=== PATIENT | female | born 1960 | race Caucasian/White ===

== ENCOUNTER 2018-04-06 11:48 | Day surgery (SDC) | payer BC ==
[~2018-04-06] VITALS: Ht 160 cm; Wt 91.0 kg
[2018-04-06 12:50] VITALS: Ht 160 cm; Wt 91.0 kg
[2018-04-06 12:58] VITALS: BP 131/64; PULSE 75; RESP 18
--- NOTE | 2018-04-06 13:09 | PREAC ---
Date/Time of Note Date/Time of Note DATE: 04/06/18 TIME: 13:05 Anesthesia Eval and Record Evaluation Time Pre-Procedure Interview DATE: 04/06/18 TIME: 13:05 Age 57 Sex female NPO: 8 hrs Preoperative diagnosis Barrets esophagitis Planned procedure EGD Past Medical History Past Medical History: Includes Cardio: HTN, Dyslipidemia Endo: Diabetes, Hypothyroid Pulm: Smoking Hx, COPD, Asthma GI: Obesity Surgery & Anesthesia Issues No known issue Meds Anticoagulation: Yes Beta Juan Carlos within 24 hr: Yes Meds reviewed: Yes Allergies Allergies Reviewed: Yes Labs/Studies Labs Reviewed: Reviewed by anesthesiologist test: N/A Studies: ECG Pre-procedure Exam Last vitals Vital Signs Date Temp Pulse Resp B/P (MAP) Pulse Ox O2 O2 Flow FiO2 Time Delivery Rate 04/06/18 97.5 75 18 131/64 96 Room Air 12:58 (86) Airway: Adequate mouth opening, Adequate thyromental dist Mallampati: Mallampati II Teeth: Normal Lung: Normal Heart: Normal ASA Physical Status ASA physical status: 3 Emergency: None Planned Anesthetic General/MAC: MAC Planned Pain Management Parenteral pain med Pre-operative Attestations Prior to commencing anesthesia and surgery, the patient was re-evaluated, there was verification of: *The patient's identity *The results of appropriate recent lab work and preoperative vital signs *The above evaluation not changing prior to induction *Anesthetic plan, risk benefits, alternative and complications discussed with patient/family; questions answered; patient/family understands, accepts and wishes to proceed. CHRISTIANE WESTON MD Apr 06, 2018 13:09
[2018-04-06] MEDS ORDERED: LORA10TA3 PO (13:10)
[2018-04-06] MEDS ORDERED: LEVO88TA3 PO (13:10)
[2018-04-06] MEDS ORDERED: SPIR100T4 PO (13:10)
[2018-04-06] MEDS ORDERED: ATOR40TA68 PO (13:10)
[2018-04-06] MEDS ORDERED: METO-319 PO (13:10)
[2018-04-06] MEDS ORDERED: FURO40TA4 PO (13:10)
[2018-04-06] MEDS ORDERED: BUSP10TA2 PO (13:10)
[2018-04-06] MEDS ORDERED: CYAN1TAB55 PO (13:10)
[2018-04-06] MEDS ORDERED: LIDOCAINE 2% (SDV) 5 ML INJ ONE (13:10)
[2018-04-06] MEDS ORDERED: AMLO-147 PO (13:10)
[2018-04-06] MEDS ORDERED: PROPOFOL 40 ML ONE (13:10)
[2018-04-06] MEDS ORDERED: GABA-526 PO (13:10)
[2018-04-06] MEDS ORDERED: HYDR-3029 PO (13:10)
[2018-04-06] MEDS ORDERED: BENA10TA4 PO (13:10)
[2018-04-06] MEDS ORDERED: CITA40TA6 PO (13:10)
[2018-04-06] MEDS ORDERED: ESOM40CA PO (13:10)
[2018-04-06] MEDS ORDERED: MTF1000T PO (13:10)
--- NOTE | 2018-04-06 13:38 | PAC ---
Date/Time of Note Date/Time of Note DATE: 04/06/18 TIME: 13:37 Post-Anesthesia Notes Post-Anesthesia Note Last documented vital signs Vital Signs Date Temp Pulse Resp B/P (MAP) Pulse Ox O2 O2 Flow FiO2 Time Delivery Rate 04/06/18 97.5 75 18 131/64 96 Room Air 12:58 (86) Activity: WNL Respiratory function: WNL Cardiovascular function: WNL Mental status: Baseline Pain reasonably controlled: Yes Hydration appropriate: Yes Nausea/Vomiting absent: Yes Comments BP:128/56, P:88, spo2:100%, T:98,4 CHRISTIANE WESTON MD Apr 06, 2018 13:38
[2018-04-06 13:59] VITALS: BP 108/64; PULSE 84; RESP 23
[2018-04-06] MEDS ORDERED: ONDANSETRON 4 MG INJ IV PRN (14:00)
[2018-04-06] MEDS ORDERED: DIPHENHYDRAMINE 50 MG INJ IV PRN (14:00)
[2018-04-06] MEDS ORDERED: FENTAnyl 50 MCG/ML VIAL IV PRN (14:00)
[2018-04-06] MEDS ORDERED: hydrALAzine 20 MG INJ IV PRN (14:00)
[2018-04-06] MEDS ORDERED: LABETALOL HCL 20MG INJ IV PRN (14:00)
== END 2018-04-06 14:53 | disposition home or self-care (01) ==
LOC: GIL 11:48
PROVIDERS: ATTEND Internal Medicine Gastroenterology
DX: K22.70 Barrett's esophagus without dysplasia (principal); I10 Essential (primary) hypertension; E78.5 Hyperlipidemia, unspecified; E03.9 Hypothyroidism, unspecified; E11.9 Type 2 diabetes mellitus without complications; J44.9 Chronic obstructive pulmonary disease, unspecified; E66.9 Obesity, unspecified; Z68.35 Body mass index [BMI] 35.0-35.9, adult
CPT/HCPCS: 82962; 88305; 88313